=== PATIENT | female | born 1985 | race Caucasian/White ===

== ENCOUNTER 2017-09-06 08:11 | Inpatient (IN) | payer BC ==
[2017-09-06] MEDS ORDERED: Oxytocin in LR* 20 UNITS/1,000 ML BAG IVPB SCH (09:00)
[2017-09-06] MEDS ORDERED: Oxytocin in LR* 20 UNITS/1,000 ML BAG IVPB ONE (09:35)
[2017-09-06 09:38] LABS: Hematocrit 35 % (35-47); Hemoglobin 11.7 g/dl (12.0-16.0); Mean Corpuscular HGB Conc 34 g/dl (31-36); Mean Corpuscular Hemoglobin 28 pg (27-31); Mean Corpuscular Volume 83 fL (80-97); Mean Platelet Volume 8 um3 (7.4-10.4); Red Blood Count 4.18 10^6/ul (4.0-5.4); Red Cell Distribution Width 13 % (10.5-15); White Blood Count 9.8 10^3/ul (3.5-10.8)
[2017-09-06] MEDS ORDERED: ceFOXitin 2 GM IVPREMIX* 2 GM/50 ML BAG ONE (16:00)
[2017-09-06] MEDS ORDERED: Sodium Citrate/Citric Acid* 15 ML UDC ONE (16:00)
[2017-09-06] MEDS ORDERED: Morphine PF AMP (0.5MG/ML)* 5 MG/10 ML AMP ONE (16:38)
[2017-09-06] MEDS ORDERED: OXYTOCIN* 10 UNITS/ML 1 ML VIAL ONE (16:38)
[2017-09-06] MEDS ORDERED: Phenylephrine IV* 40 MCG/ML 10 ML SYRINGE ONE (16:38)
[2017-09-06] MEDS ORDERED: Acetaminophen TAB* 325 MG PO PRN (17:54)
[2017-09-06] MEDS ORDERED: Glycerin ADULT SUPP PR PRN (17:54)
[2017-09-06] MEDS ORDERED: Zolpidem TAB* 5 MG PO PRN (17:54)
[2017-09-06] MEDS ORDERED: Dibucaine 1% 28.35 GM TUBE PR PRN (17:54)
[2017-09-06] MEDS ORDERED: Witch Hazel PAD* JAR TOPICAL PRN (17:54)
[2017-09-06] MEDS ORDERED: fentaNYL* 50 MCG/ML 2 ML VIAL (100 MCG VIAL) IV PRN (18:01)
[2017-09-06] MEDS ORDERED: Ondansetron INJ* 2 MG/ML VIAL IV PRN ×2 (18:01→18:02)
[2017-09-06] MEDS ORDERED: Naloxone* 0.4 MG/ML 1 ML VIAL IV PRN (18:02)
[2017-09-06] MEDS ORDERED: diPHENhydraMINE IV* 50 MG/ML 1 ml VIAL (BENADRYL) IV PRN (18:02)
[2017-09-06] MEDS ORDERED: oxyCODONE/Acetamin 5/325 MG* TAB PO PRN ×2 (18:02)
[2017-09-06] MEDS ORDERED: Ketorolac INJ* 30 MG/ML 1 ML VIAL IV PRN (18:02)
[2017-09-06] MEDS: Docusate CAP* 100 MG PO SCH (21:56)
[2017-09-06] MEDS: Simethicone TAB* 80 MG TAB.CHEW PO SCH (21:56)
[2017-09-07 07:30] LABS: Hematocrit 33 % (35-47); Hemoglobin 11.1 g/dl (12.0-16.0); Mean Corpuscular HGB Conc 34 g/dl (31-36); Mean Corpuscular Hemoglobin 28 pg (27-31); Mean Corpuscular Volume 82 fL (80-97); Mean Platelet Volume 7 um3 (7.4-10.4); Red Blood Count 4.03 10^6/ul (4.0-5.4); Red Cell Distribution Width 13 % (10.5-15); White Blood Count 12.7 10^3/ul (3.5-10.8)
[2017-09-07] MEDS ORDERED: Ferrous Gluconate TAB* 324 MG TAB PO SCH (09:00)
[2017-09-07] MEDS: Simethicone TAB* 80 MG TAB.CHEW PO SCH ×4 (09:14→21:52)
[2017-09-07] MEDS: Docusate CAP* 100 MG PO SCH ×3 (09:14→21:52)
[2017-09-07] MEDS: oxyCODONE/Acetamin 5/325 MG* TAB PO PRN ×2 (13:20→18:23)
[2017-09-07] MEDS: Ibuprofen TAB* 600 MG PO PRN ×2 (16:00→21:52)
[2017-09-08] MEDS: oxyCODONE/Acetamin 5/325 MG* TAB PO PRN ×5 (00:21→23:32)
[2017-09-08] MEDS: Ibuprofen TAB* 600 MG PO PRN ×4 (04:39→23:32)
[2017-09-08] MEDS: Docusate CAP* 100 MG PO SCH ×3 (08:33→19:56)
[2017-09-08] MEDS: Simethicone TAB* 80 MG TAB.CHEW PO SCH ×4 (08:33→19:56)
--- NOTE | 2017-09-08 23:40 | OP ---
DATE OF OPERATION: 09/06/17 - ROOM #MCHOB-103 DATE OF : 85 SURGEON: Santiago Lozano MD NURSE OFFICE: Yen Guerrero CNM. ANESTHESIOLOGIST: Angel Moncada MD ANESTHESIA: Spinal. PRE-OP DIAGNOSIS: at 39 weeks, in labor, with a breech presentation. POST-OP DIAGNOSIS: at 39 weeks, in labor, with a breech presentation. OPERATIVE PROCEDURE: Primary low-transverse section. ESTIMATED BLOOD LOSS: 500 cc. IV FLUIDS: She received 1600 cc of crystalloid fluid. URINE OUTPUT: Clear. FINDINGS: Delivery of a chelsi breech male infant with a weight of 5 pounds 10 ounces with Apgars of 6 and 9 with clear fluid. The placenta was within normal limits, grossly intact. There was normal uterus, adnexa, bowel and bladder and there were no complications. DESCRIPTION OF PROCEDURE: The patient was taken to the operating room where she was identified. She was placed on operating table where a spinal anesthetic was obtained without difficulty. She was placed in the supine position with leftward tilt, prepped and draped in a normal sterile fashion. A Pfannenstiel skin incision was made with a knife and carried through to the underlying layer of fascia. The fascia was nicked in the midline and extended laterally with curved Pink scissors. The fascia was then grasped superiorly and inferiorly with Mitzi clamps and dissected off sharply from the rectus muscle. The rectus muscle was at the midline bluntly. The peritoneum was identified, grasped with pickups, entered sharply with Metzenbaum scissors and extended laterally bluntly. A bladder blade was inserted into the patient's abdomen, a bladder flap was created using Metzenbaum scissors over which the bladder blade was then reinserted. A low transverse incision was made with the knife, extended laterally with bandage scissors. At this point, the infant was delivered through a breech extraction. After delivery, the cord was clamped and cut, the was then handed off to the awaiting crew trainer. Cord bloods were obtained as well as the cord gas. The placenta was then removed manually. The uterus was then exteriorized, cleared of all clot and debris using moist laparotomy sponges. The uterine incision was then closed using 0 Polysorb suture in a running locked fashion with a second imbricating layer of 0 Polysorb suture with good hemostasis noted at the incision on the uterus. At this point, the uterus was returned to the patient's abdomen. The gutters were then cleared of all clot and debris using moist laparotomy sponges. A second look at the uterine incision was noted to be hemostatic. All the sponges and instruments were removed from the patient's abdomen. The peritoneum was then closed using 3-0 Polysorb suture in a running fashion, the fascia was closed using 0 Polysorb suture in a running fashion, the skin was closed with a 4-0 Monocryl subcuticular stitch. The patient tolerated the procedure well. Sponge , lap, and needle counts were correct x2. She was then transferred to the recovery room area in stable condition. [id number] #: [id number] MTDD
[2017-09-09] MEDS: Ibuprofen TAB* 600 MG PO PRN ×2 (05:45→11:44)
[2017-09-09] MEDS: oxyCODONE/Acetamin 5/325 MG* TAB PO PRN ×2 (05:46→11:44)
[2017-09-09 08:19] VITALS: BP 105/61
[2017-09-09] MEDS: Simethicone TAB* 80 MG TAB.CHEW PO SCH ×2 (08:45→13:05)
[2017-09-09] MEDS: Docusate CAP* 100 MG PO SCH ×2 (08:45→13:05)
== END 2017-09-09 13:18 | disposition home or self-care (01) | DRG 540 ==
LOC: MCHOBOUT 08:11 → MCHOB 08:42
PROVIDERS: ADMIT Midwife; ATTEND Obstetrics & Gynecology
PROC: 3E033VJ Introduction of Other Hormone into Peripheral Vein, Percutaneous Approach (ICD-10-PCS; 2017-09-06)
PROC: 10D00Z1 Extraction of Products of Conception, Low, Open Approach (ICD-10-PCS; 2017-09-06)
PROC: 4A1HXCZ Monitoring of Products of Conception, Cardiac Rate, External Approach (ICD-10-PCS; 2017-09-06)
PROC: 10907ZC Drainage of Amniotic Fluid, Therapeutic from Products of Conception, Via Natural or Artificial Opening (ICD-10-PCS; principal; 2017-09-06 16:46)
DX: O32.1XX0 Maternal care for breech presentation, not applicable or unspecified (principal); L29.9 Pruritus, unspecified; Z3A.39 39 weeks gestation of pregnancy; Z37.0 Single live birth; Z88.2 Allergy status to sulfonamides; O77.0 Labor and delivery complicated by meconium in amniotic fluid; O90.89 Other complications of the puerperium, not elsewhere classified
CPT/HCPCS: 36415; 85025; 86850; 86900; 86901; A9270-GY; J0694; J1885; J2405; J2590

== ENCOUNTER 2018-05-31 09:44 | Emergency (ER) | payer BC ==
[2018-05-31] MEDS ORDERED: Ibuprofen TAB* 600 MG PO ONE (10:24)
--- NOTE | 2018-05-31 10:38 | ED ---
Lower Extremity - HPI Summary HPI Summary: Patient here with left lateral ankle pain and swelling after rolling her ankle last night. She reports she was skipping through the parking lot when she landed awkwardly on her foot and twisted her ankle. She did not fall and has no other injuries to report. She was able to bear weight after the injury and is able to bear weight today however she reports pain is worse with bearing weight today. She has swelling along the lateral aspect of her ankle and reports when she inverts her foot she has a "weird sensation in my toes". Otherwise denies numbness, tingling, weakness. She tried ice last night with a compression wrap but the pressure of the ice on her injury was uncomfortable. She has not taken any medication for her pain prior to arrival. She would like to try some ibuprofen here today. She admits she's injured this ankle in the past however she's been able to "walk it off" and this time pain is lingering longer than she would expect. - History of Current Complaint Chief Complaint: EDExtremityLower Stated Complaint: LT ANKLE INJURY Time Seen by Provider: 05/31/18 09:48 Hx Obtained From: Patient Pain Intensity: 10 - Allergies/Home Medications Allergies/Adverse Reactions: Allergies Allergy/AdvReac Type Severity Reaction Status Date / Time Sulfa (Sulfonamide Allergy Anaphylatic Verified 05/31/18 09:50 Antibiotics) Shock Home Medications: Home Medications NK [No Home Medications Reported] 05/31/18 [History Confirmed 05/31/18] PMH/Surg Hx/FS Hx/Imm Hx Previously Healthy: Yes Endocrine/Hematology History: Denies: Hx Anticoagulant Therapy, Hx Blood Disorders, Hx Diabetes, Hx Thyroid Disease, Autoimmune Disease Cardiovascular History: Denies: Hx Hypertension Respiratory History: Denies: Hx Asthma History: Denies: Hx Kidney Infection, Other Problems/Disorders Musculoskeletal History: Reports: Other Musculoskeletal History - previous ankle sprains Psychiatric History: Denies: Hx Anxiety, Hx Depression, Other Psychiatric Issues/Disorders Infectious Disease History: No Infectious Disease History: Denies: Traveled Outside the [place] in Last 30 Days - Social History 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 Negative: Decreased ROM Positive: Bruising Neurological: Negative Psychological: Normal All Other Systems Reviewed And Are Negative: Yes Physical Exam Triage Information Reviewed: Yes Vital Signs On Initial Exam: Initial Vitals Temp Pulse Resp BP Pulse Ox 97.3 F 81 16 120/77 100 05/31/18 09:51 05/31/18 09:51 05/31/18 09:51 05/31/18 09:51 05/31/18 09:51 Vital Signs Reviewed: Yes Appearance: Positive: Well-Appearing, No Pain Distress - at rest, Well-Nourished Skin: Positive: Warm, Skin Color Reflects Adequate Perfusion, Dry - mild ecchymosis over Lt lateral ankle - mild edema and TTP along posterior aspect of malleolus - no gross deformity, no tenting of skin or skin breakdown Head/Face: Positive: Normal Head/Face Inspection Eyes: Positive: EOMI ENT: Positive: Hearing grossly normal Respiratory/Lung Sounds: Positive: Breath Sounds Present Cardiovascular: Positive: Pulses are Symmetrical in both Upper and Lower Extremities Musculoskeletal: Positive: Strength/ROM Intact - however pt reports pain w/ plantar flexion and inversion over affected area, ess pain w/ dorsiflexion and no pain w/ eversion; toes and MT's NTTP Neurological: Positive: Normal, Sensory/Motor Intact, Alert, Oriented to Person Place, Time, CN Intact II-III Psychiatric: Positive: Normal Diagnostics - Vital Signs Vital Signs Temp Pulse Resp BP Pulse Ox 05/31/18 09:51 97.3 F 81 16 120/77 100 - Laboratory Lab Statement: Any lab studies that have been ordered have been reviewed, and results considered in the medical decision making process. Lower Extremity Course/Dx - Course Course Of Treatment: XR: no fx, no dislocation. Apears to have a 1st degree sprain - Diagnoses Provider Diagnoses: Left ankle sprain Discharge - Sign-Out/Discharge Documenting (check all that apply): Patient Departure - Discharge Plan Condition: Stable Disposition: HOME Patient Education Materials: Ankle Sprain (ED), Crutch Instructions (ED) Forms: *Work Release Referrals: [facility] [Outside] Additional Instructions: REST, ICE, ELEVATE Wear HARDY wrap during waking hours to reduce pain/swelling. Do not wear to sleep. You may take ibuprofen alternating with acetaminophen as needed for pain Follow-up with PCP in 1-2 weeks if symptoms persist or worsen. Use crutches to avoid weight bearing as needed - advance as tolerated. *If you develop numbness, tingling, weakness, swelling or skin discoloration, remove HARDY wrap and elevate leg for 20 minutes. If symptoms persist, return to ED - Billing Disposition and Condition Condition: STABLE Disposition: Home
--- NOTE | 2018-05-31 10:59 | RAD ---
INDICATION: Left ankle injury. TECHNIQUE: 3 views of the left ankle were obtained. FINDINGS: Soft tissue swelling is noted along the anterolateral aspect of the ankle. No fracture is seen. Joint spaces appear maintained. IMPRESSION: SOFT TISSUE SWELLING, NO FRACTURE IS SEEN.
[2018-05-31 11:34] VITALS: BP 121/74
== END 2018-05-31 11:33 | disposition home or self-care (01) ==
LOC: ED 09:44
DX: S93.402A Sprain of unspecified ligament of left ankle, initial encounter (principal); X50.9XXA Other and unspecified overexertion or strenuous movements or postures, initial encounter; Y92.9 Unspecified place or not applicable; F17.210 Nicotine dependence, cigarettes, uncomplicated
CPT/HCPCS: 99282; A9270-GY

== ENCOUNTER 2019-10-02 13:28 | Emergency (ER) | payer BC ==
[2019-10-02 13:47] LABS: ABS Lymphocytes 0.5 10^3/ul (1.0-4.8); ABS Monocytes 0.5 10^3/ul (0-0.8); ABS Neutrophils 16.3 10^3/ul (1.5-7.7); Eosinophil % 0.2 %; Hematocrit 41 % (35-47); Hemoglobin 13.8 g/dL (12.0-16.0); Lymphocyte % 2.9 %; Mean Corpuscular HGB Conc 34 g/dL (31-36); Mean Corpuscular Hemoglobin 28 pg (27-31); Mean Corpuscular Volume 82 fL (80-97); Mean Platelet Volume 7.2 fL (7.4-10.4); Platelet Count 348 10^3/uL (150-450); Red Blood Count 4.98 10^6 /uL (3.70-4.87); Red Cell Distribution Width 14 % (10-15); White Blood Count 17.3 10^3/uL (3.5-10.8)
[2019-10-02 13:52] LABS: INR 1.03 (0.82-1.09)
[2019-10-02 14:01] LABS: Albumin 4.5 g/dL (3.2-5.2); Albumin/Globulin Ratio 1.4 (1-3); BUN/Creatinine Ratio 18.8 (8-20); Calcium 9.5 mg/dL (8.6-10.3); EGFR African American 128.5 (>60); EGFR Non-African American 106.2 (>60); Globulin 3.3 g/dL (2-4); Total Protein 7.8 g/dL (6.4-8.9)
--- NOTE | 2019-10-02 15:42 | ED ---
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 Symptoms aggravated by nothing. Symptoms alleviated by nothing. Patient reports she woke up with stomach pain and started having anxiety where her arms became numb and her shoulders were tight. Pt reports she is still currently nauseated and dizzy, had diarrhea described as peeing out butthole, is dry heaving but has not eaten anything, is sore and has pain in shoulders, is sore in her arms, is gassy, and had syncope in the waiting room. Denies cramps. Pt reports she went to work all day yesterday. Allergic to sulfa. - History Of Current Complaint Chief Complaint: EDChestPainROMI Time Seen by Provider: 10/02/19 15:34 Hx Obtained From: Patient Onset/Duration: Sudden Onset, Still Present Timing: Constant Aggravating Factor(s): nothing Alleviating Factor(s): nothing Associated Signs And Symptoms: Positive: Dizziness, Syncope, Nausea, Vomiting, Diarrhea, Abdominal Pain, Other - anxiety (arms numb/sore, shoulders tight/ painful/sore), gassy; denies cramps - Allergies/Home Medications Allergies/Adverse Reactions: Allergies Allergy/AdvReac Type Severity Reaction Status Date / Time Sulfa (Sulfonamide Allergy Anaphylatic Verified 10/02/19 13:35 Antibiotics) Shock PMH/Surg Hx/FS Hx/Imm Hx Endocrine/Hematology History: Denies: Hx Anticoagulant Therapy, Hx Blood Disorders, Hx Diabetes, Hx Thyroid Disease Cardiovascular History: Denies: Hx Hypertension Respiratory History: Denies: Hx Asthma History: Denies: Hx Kidney Infection, Other Problems/Disorders Musculoskeletal History: Reports: Other Musculoskeletal History - previous ankle sprains Psychiatric History: Denies: Hx Anxiety, Hx Depression, Other Psychiatric Issues/Disorders - Surgical History Surgery Procedure, Year, and Place: stitches in forehead, , stitches in arm Infectious Disease History: No Infectious Disease History: Denies: Traveled Outside the [place] in Last 30 Days - Family History Known Family History: Positive: Cardiac Disease, Diabetes, Other - anxiety, CA, colitis - Social History Alcohol Use: Occasionally Hx Substance Use: Yes Substance Use Type: Reports: Marijuana Hx Tobacco Use: Yes Smoking Status (MU): Current Every Day Smoker - socially at times, not routinely Have You Smoked in the Last Year: No Review of Systems Positive: Abdominal Pain, Vomiting, Diarrhea, Nausea, Other - gassy Positive: Other - denies cramps Neurological: Other - anxiety (arms numb/sore, shoulders tight/painful/sore), dizziness Positive: Syncope All Other Systems Reviewed And Are Negative: Yes Physical Exam - Summary Physical Exam Summary: Appearance: The patient is well-nourished in no acute distress and in no acute pain. Skin: The skin is warm and dry, and skin color reflects adequate perfusion. HEENT: The head is normocephalic and atraumatic. The pupils are equal and reactive. The conjunctivae are clear and without drainage. Nares are patent and without drainage. Mouth revealsdry mucous membranes. The external ears are intact. The ear canals are patent and without drainage. The tympanic membranes are intact. Neck: The neck is supple with full range of motion and non-tender. There are no carotid bruits. There is no neck vein distension. Respiratory: Chest is non-tender. Lungs are clear to auscultation and breath sounds are symmetrical and equal. Cardiovascular: Heart is regular rate and rhythm. There is no murmur or rub auscultated. There is no peripheral edema and pulses are symmetrical and equal. Abdomen: The abdomen is soft and non-tender. There are normal bowel sounds heard in all four quadrants and there is no organomegaly palpated. Musculoskeletal: There is no back tenderness noted. Extremities are non-tender with full range of motion. There is good capillary refill. There is no peripheral edema or calf tenderness elicited. Neurological: Patient is alert and oriented to person, place and time. The patient has symmetrical motor strength in all four extremities. Cranial nerves are grossly intact. Deep tendon reflexes are symmetrical and equal in all four extremities. Psychiatric: The patient has an appropriate affect and does not exhibit any anxiety or depression. Triage Information Reviewed: Yes Vital Signs On Initial Exam: Initial Vitals Temp Pulse Resp BP Pulse Ox 99.7 F 86 20 113/71 100 10/02/19 13:33 10/02/19 13:33 10/02/19 13:33 10/02/19 13:33 10/02/19 13:33 Vital Signs Reviewed: Yes Procedures - Sedation Patient Received Moderate/Deep Sedation with Procedure: No Diagnostics - Vital Signs Vital Signs Temp Pulse Resp BP Pulse Ox 10/02/19 14:16 98.2 F 76 20 121/81 100 10/02/19 13:33 99.7 F 86 20 113/71 100 - Laboratory Lab Results: Lab Results 10/02/19 10/02/19 10/02/19 Range/Units 13:36 13:36 13:37 WBC 17.3 H (3.5-10.8) 10^3/uL RBC 4.98 H (3.70-4.87) 10^6 /uL Hgb 13.8 (12.0-16.0) g/dL Hct 41 (35-47) % MCV 82 (80-97) fL MCH 28 (27-31) pg MCHC 34 (31-36) g/dL RDW 14 (10-15) % Plt Count 348 (150-450) 10^3/uL MPV 7.2 L (7.4-10.4) fL Neut % (Auto) 93.9 % Lymph % (Auto) 2.9 % [place] % (Auto) 2.9 % Eos % (Auto) 0.2 % Baso % (Auto) 0.1 % Absolute Neuts (auto) 16.3 H (1.5-7.7) 10^3/ul Absolute Lymphs (auto) 0.5 L (1.0-4.8) 10^3/ul Absolute Monos (auto) 0.5 (0-0.8) 10^3/ul Absolute Eos (auto) 0.0 (0-0.6) 10^3/ul Absolute Basos (auto) 0.0 (0-0.2) 10^3/ul Absolute Nucleated RBC 0.0 10^3/ul Nucleated RBC % 0.0 INR (Anticoag Therapy) 1.03 (0.82-1.09) Sodium 135 (135-145) mmol/L Potassium 4.0 (3.5-5.0) mmol/L Chloride 104 (101-111) mmol/L Carbon Dioxide 23 (22-32) mmol/L Anion Gap 8 (2-11) mmol/L BUN 12 (6-24) mg/dL Creatinine 0.64 (0.51-0.95) mg/dL Est GFR ( Amer) 128.5 (>60) Est GFR (Non-Af Amer) 106.2 (>60) BUN/Creatinine Ratio 18.8 (8-20) Glucose 115 H (70-100) mg/dL Calcium 9.5 (8.6-10.3) mg/dL Total Bilirubin 1.00 (0.2-1.0) mg/dL AST 14 (13-39) U/L ALT 12 (7-52) U/L Alkaline Phosphatase 68 (34-104) U/L Troponin I 0.00 (<0.03) ng/mL Total Protein 7.8 (6.4-8.9) g/dL Albumin 4.5 (3.2-5.2) g/dL Globulin 3.3 (2-4) g/dL Albumin/Globulin Ratio 1.4 (1-3) Result Diagrams: 10/02/19 13:37 10/02/19 13:36 Lab Statement: Any lab studies that have been ordered have been reviewed, and results considered in the medical decision making process. - Radiology Chest X-Ray Radiology Interpretation Completed By: Radiologist Summary of Radiographic Findings: Per radiologist,. No radiographic evidence of acute cardiopulmonary disease. ED physician has reviewed this imaging report. Complex Multi-Symp Course/Dx Course Of Treatment: Ms. Pio Orozco felt better after fluids and antiemetics here in the emergency department. She was able to sleep for a while and felt quite a bit improved upon awakening. I think that she has a gastroenteritis whether viral or bacterial I cannot tell. She's had no further stool here and a recommended discharge with symptomatic treatment. I sent a prescription for Zofran. - Diagnoses Provider Diagnoses: Gastroenteritis Discharge ED - Sign-Out/Discharge Documenting (check all that apply): Patient Departure - discharge - Discharge Plan Condition: Stable Disposition: HOME Prescriptions: Ondansetron ODT TAB* [Zofran Odt TAB*] 4 mg PO Q6H PRN #20 tab.odt PRN Reason: Nausea/Vomiting Patient Education Materials: Gastroenteritis (ED) Referrals: Abeba Berger MD [Primary Care Provider] - 3 Days Additional Instructions: Follow up with primary care provider within 3 days. - Billing Disposition and Condition Condition: STABLE Disposition: Home - Attestation Statements Document Initiated by Scribe: Yes Documenting Scribe: Emma Alberto Provider For Whom Scribe is Documenting (Include Credential): Dr. Everardo Wan MD Scribe Attestation: I, Emma Alberto, scribed for Dr. Everardo Wan MD on 10/02/19 at 2018. Scribe Documentation Reviewed: Yes Provider Attestation: The documentation as recorded by the scribe, Emma Alberto accurately reflects the service I personally performed and the decisions made by me, Dr. Everardo Wan MD Status of Scribe Document: Viewed
[2019-10-02] MEDS ORDERED: Ondansetron INJ* 2 MG/ML VIAL IV ONE (15:48)
[2019-10-02] MEDS ORDERED: NS 0.9% 1000 ML** 1,000 ML IV ONE (16:06)
[2019-10-02] MEDS ORDERED: PROCHLORPERAZINE INJ 5 MG/ML 2 ML VIAL IV PRN (16:52)
[2019-10-02] MEDS ORDERED: Ondansetron ODT TAB* 4 MG PO PRN (19:15)
[2019-10-02 19:21] VITALS: BP 98/59
== END 2019-10-02 19:20 | disposition home or self-care (01) ==
LOC: ED 13:28
DX: K52.9 Noninfective gastroenteritis and colitis, unspecified (principal); F17.200 Nicotine dependence, unspecified, uncomplicated; Z88.2 Allergy status to sulfonamides
CPT/HCPCS: 36415; 71046; 80053; 84484; 85025; 85610; 93005; 96361; 96374; 96375; 99283; A9270-GY; J0780; J2405